=== PATIENT | female | born 1990 | race African-American/Black ===

== ENCOUNTER 2017-03-15 09:51 | Emergency (ER) | payer SELFPAY ==
[~2017-03-15] VITALS: Ht 152.4 cm; Wt 54.0 kg
[2017-03-15 10:06] VITALS: BP 103/64
== END 2017-03-15 16:13 | disposition left against medical advice (07) ==
LOC: ER 13:49
DX: R51 Headache (principal); Z53.21 Procedure and treatment not carried out due to patient leaving prior to being seen by health care provider

== ENCOUNTER 2017-05-17 16:11 | Emergency (ER) | payer MEDICAID ==
[~2017-05-17] VITALS: Ht 149.9 cm; Wt 54.5 kg
[2017-05-17] MEDS ORDERED: BACITRACIN ZINC OINT UDPKT TOP ONE (17:30)
[2017-05-17 18:30] VITALS: BP 122/73
== END 2017-05-17 18:32 | disposition home or self-care (01) ==
LOC: ER 16:11
DX: S61.316A Laceration without foreign body of right little finger with damage to nail, initial encounter (principal); R07.89 Other chest pain; E11.9 Type 2 diabetes mellitus without complications; W01.0XXA Fall on same level from slipping, tripping and stumbling without subsequent striking against object, initial encounter; Y93.02 Activity, running; Y92.838 Other recreation area as the place of occurrence of the external cause
CPT/HCPCS: 12001; 82962; 99285; X7700; Z7610